=== PATIENT | female | born 1970 | race Caucasian/White ===

== ENCOUNTER 2016-03-01 07:55 | Emergency (ER) | payer MEDICARE ==
[2016-03-01] MEDS ORDERED: KETOROLAC 30 MG/ML VIAL ONE (08:17)
[2016-03-01] MEDS ORDERED: DILAUDID 1 MG/ML AMP ONE ×3 (09:28→15:28)
== END 2016-03-01 19:20 ==
LOC: ER 07:55
CPT/HCPCS: 73562; 73610; 96372 ×2; 99283; J1170; J1885